=== PATIENT | female | born 1935 | race Caucasian/White ===

== ENCOUNTER 2020-02-19 21:13 | Emergency (ER) | payer MEDICARE, OTHER ==
[~2020-02-19] VITALS: Ht 154.9 cm; Wt 66.7 kg
--- NOTE | 2020-02-19 21:20 | NUR ---
PT AAOX4. BIBEMS C/O DIZZINESS, WEAKNESS S/P TAKING CLONIDINE, HYDRALAZINE & COREG. PT PLACED IN BED 9 ON PHOTOGRAPHY TEACHER AND PULSE OX. NO ACUTE DISTRESS NOTED. AWAITING MD FOR EVAL AND ORDERS.
[2020-02-19 21:30] LABS: BASOPHILS # (AUTO) 0.1 /CMM (0.0-0.2); BASOPHILS % (AUTO) 0.9 % (0.0-2.0); EOSINOPHILS % (AUTO) 2.8 % (0.0-6.0); HEMATOCRIT 36 % (33-45); HEMOGLOBIN 12.1 g/dL (11.5-14.8); LYMPHOCYTES # (AUTO) 1.5 /CMM (0.8-4.8); LYMPHOCYTES % (AUTO) 24.3 % (20.0-44.0); MEAN CORPUSCULAR HGB CONC 34 g/dl (31.0-36.0); MEAN CORPUSCULAR VOLUME 95 fL (82-100); MONOCYTES # (AUTO) 0.8 /CMM (0.1-1.30); MONOCYTES % (AUTO) 12.3 % (2.0-12.0); NEUTROPHILS # (AUTO) 3.8 /CMM (1.8-8.9); NEUTROPHILS % (AUTO) 59.7 % (43.0-81.0); PLATELET COUNT (AUTO) 212 /CMM (150-450); RED BLOOD CELL COUNT(AUTO) 3.81 MIL/uL (4.0-5.2); WHITE BLOOD COUNT (AUTO) 6.3 K/uL (4.3-11.0)
[2020-02-19] MEDS: IV NS 0.9% 500 ML BAG IV ONE (21:39)
--- NOTE | 2020-02-19 21:39 | NUR ---
RADIOLOGY AT BEDSIDE
[2020-02-19 21:41] LABS: CALCIUM, SERUM 9.2 mg/dL (8.5-10.1); CARBON DIOXIDE 26 mmol/L (21-32); CHLORIDE 106 mmol/L (98-107); CREATININE 1.2 mg/dL (0.6-1.3); GLUCOSE 92 mg/dL (74-106); POTASSIUM 3.3 mmol/L (3.5-5.1); SODIUM SERUM 142 mmol/L (136-145); UREA NITROGEN, BLOOD 17 mg/dL (7-18)
[2020-02-19 21:47] LABS: ALANINE AMINOTRANSFERASE 17 U/L (12-78); ALBUMIN 3.4 g/dL (3.4-5.0); ALKALINE PHOSPHATASE 68 U/L (46-116); ASPARTATE AMINOTRANSFERASE 18 U/L (15-37); BILIRUBIN,DIRECT 0.1 mg/dL (0.0-0.2); BILIRUBIN,TOTAL 0.2 mg/dL (0.2-1.0); TOTAL PROTEIN, SERUM 7.4 g/dL (6.4-8.2)
--- NOTE | 2020-02-19 22:19 | NUR ---
PT BP STABLE. MD AT BEDSIDE.
--- NOTE | 2020-02-19 22:27 | NUR ---
IV removed. Catheter intact and site benign. Pressure and 4x4 applied to site. No bleeding noted.
--- NOTE | 2020-02-19 23:02 | NUR ---
AWAITING FOR PT'S DAUGHTER IN LAW TO HOSPITALITY DIRECTOR PT.
--- NOTE | 2020-02-19 23:31 | NUR ---
Patient discharged to home in stable condition. Written and verbal after care instructions given. Patient verbalizes understanding of instruction. Pt ambulated out of E.D. Picked up by daughter in law.
[2020-02-19 23:32] VITALS: BP 129/76
== END 2020-02-19 23:32 | disposition home or self-care (01) ==
LOC: ER 21:13
DX: R55 Syncope and collapse (principal); R42 Dizziness and giddiness; I10 Essential (primary) hypertension
CPT/HCPCS: 36415; 71045; 80048; 80076; 84484; 85025; 85730; 93005; 99285; J7040

== ENCOUNTER 2020-04-19 11:14 | Inpatient (IN) | payer MEDICARE, OTHER ==
[~2020-04-19] VITALS: Ht 154.9 cm; Wt 63.0 kg
[2020-04-19] MEDS ORDERED: ONDANSETRON HCL/PF 4 MG/2 ML VIAL ONE (11:29)
[2020-04-19] MEDS ORDERED: ONDANSETRON HCL/PF 4 MG/2 ML VIAL IV ONE (11:30)
[2020-04-19] MEDS ORDERED: IV NS 0.9% 1,000 ML BAG IV ONE ×2 (11:30→15:00)
--- NOTE | 2020-04-19 11:30 | NUR ---
Patient ho from home, had syncopal episode, assisted by family to the ground, no injury/trauma noted. Connected to the monitor and pulse ox. kept comfortable, will continue to monitor accordingly.
[2020-04-19 12:02] LABS: BASOPHILS % (AUTO) 0.9 % (0.0-2.0); EOSINOPHILS % (AUTO) 2.3 % (0.0-6.0); HEMATOCRIT 34 % (33-45); HEMOGLOBIN 11.5 g/dL (11.5-14.8); LYMPHOCYTES # (AUTO) 0.9 /CMM (0.8-4.8); LYMPHOCYTES % (AUTO) 16.1 % (20.0-44.0); MEAN CORPUSCULAR HGB CONC 34 g/dl (31.0-36.0); MEAN CORPUSCULAR VOLUME 93 fL (82-100); MONOCYTES # (AUTO) 0.5 /CMM (0.1-1.30); MONOCYTES % (AUTO) 9.6 % (2.0-12.0); NEUTROPHILS # (AUTO) 3.8 /CMM (1.8-8.9); NEUTROPHILS % (AUTO) 71.1 % (43.0-81.0); PLATELET COUNT (AUTO) 211 /CMM (150-450); RED BLOOD CELL COUNT(AUTO) 3.63 MIL/uL (4.0-5.2); WHITE BLOOD COUNT (AUTO) 5.3 K/uL (4.3-11.0)
[2020-04-19] MEDS ORDERED: APIX2.5T PO (12:09)
[2020-04-19] MEDS ORDERED: AMIO100T4 PO (12:09)
[2020-04-19] MEDS ORDERED: ISOS30TA86 PO (12:09)
[2020-04-19] MEDS ORDERED: CHLO25TA2 PO (12:09)
[2020-04-19] MEDS ORDERED: HYDR100T27 PO (12:09)
[2020-04-19] MEDS ORDERED: CLON0.1T PO (12:09)
[2020-04-19] MEDS ORDERED: CARV25TA2 PO (12:09)
[2020-04-19] MEDS ORDERED: OLME40TA18 PO (12:09)
[2020-04-19] MEDS ORDERED: POTA10TA11 PO (12:09)
[2020-04-19 12:15] LABS: CALCIUM, SERUM 8.5 mg/dL (8.5-10.1); CARBON DIOXIDE 26 mmol/L (21-32); CHLORIDE 98 mmol/L (98-107); CREATININE 1.4 mg/dL (0.6-1.3); GLUCOSE 168 mg/dL (74-106); POTASSIUM 3.6 mmol/L (3.5-5.1); SODIUM SERUM 132 mmol/L (136-145); UREA NITROGEN, BLOOD 20 mg/dL (7-18)
[2020-04-19 12:23] LABS: ALANINE AMINOTRANSFERASE 17 U/L (12-78); ALBUMIN 3.1 g/dL (3.4-5.0); ALKALINE PHOSPHATASE 57 U/L (46-116); ASPARTATE AMINOTRANSFERASE 17 U/L (15-37); BILIRUBIN,DIRECT 0.1 mg/dL (0.0-0.2); BILIRUBIN,TOTAL 0.5 mg/dL (0.2-1.0); TOTAL PROTEIN, SERUM 6.6 g/dL (6.4-8.2)
--- NOTE | 2020-04-19 12:27 | NUR ---
[facility] CALLED ELECTRICAL CAD TECHNICIAN PAGED.
--- NOTE | 2020-04-19 12:29 | NUR ---
LACTIC ACID 2.2 ROBERTO SALTER.
--- NOTE | 2020-04-19 14:22 | NUR ---
received a call from the lab regarding covid 19 result "negative".
--- NOTE | 2020-04-19 15:28 | NUR ---
LACTIC ACID 2.1
--- NOTE | 2020-04-19 15:37 | NUR ---
REPORT GIVEN TO ESAU DAVE FOR JETT.
[2020-04-19 16:00] VITALS: BP 181/76
--- NOTE | 2020-04-19 16:30 | NUR ---
TELE/RN NOTES RECEIVED REPORT FROM SAMMY DAVE. ADMITTED A FEMALE PATIENT FROM ER. PATIENT IN ROOM AIR SATURATING WELL. NO APPARENT RESPIRATORY DISTRESS NOTES. NO COMPLAINED OF PAIN NOTED AT THIS TIME. INITIAL SKIN ASSESSMENT AND VITAL SIGN WAS DONE AND NOTED. WILL CONTINUE TO MONITOR.
--- NOTE | 2020-04-19 16:37 | NUR ---
PATIENT TRANSFERRED TO UNIT ROOM 314-2, VITAL SIGNS STABLE, IN NO ACUTE DISTRESS. ENDORSED TO ADARSH DAEV TO RESUME CARE.
[2020-04-19] MEDS ORDERED: ZOLPIDEM TARTRATE 5 MG TABLET PO PRN (17:00)
[2020-04-19] MEDS ORDERED: ONDANSETRON HCL/PF 4 MG/2 ML VIAL IVP PRN (17:00)
[2020-04-19] MEDS ORDERED: Z GUARD REMEDY 2 OZ OINT TP PRN (17:00)
[2020-04-19] MEDS ORDERED: MAGNESIUM HYDROXIDE 30 ML UDC PO PRN (17:00)
[2020-04-19] MEDS ORDERED: ACETAMINOPHEN 325 MG TABLET PO PRN (17:00)
[2020-04-19] MEDS ORDERED: IV NS 0.9% 1,000 ML IV PRN (18:30)
--- NOTE | 2020-04-19 18:46 | NUR ---
TELE/RN CLOSING NOTES PATIENT IS ON BED,AWAKE ALERT AND ORIENTED X3. PATIENT IS ON ROOM AIR SATURATION 98%. PATIENT IN NO APPARENT RESPIRATORY DISTRESS NOTED. NO COMPLAINED OF PAIN NOTED AT THIS TIME. TELE MONITOR READING A PACING 60 BPM. SAFETY PRECAUTIONS WAS IN PLACED. BED IN LOWEST POSITION AND LOCKED. SIDE RAILS WAS LOCKED X2. WILL ENDORSED TO QUARTZ MOUNTER FOR JETT.
[2020-04-19 19:12] LABS: COLOR,URINE LIGHT YELLOW (YELLOW)
[2020-04-19 19:13] LABS: BILIRUBIN,URINE NEGATIVE (NEGATIVE); PROTEIN,URINE NEGATIVE (NEGATIVE); UGLUCOSE NEGATIVE (NEGATIVE)
[2020-04-19 19:14] LABS: LEUKOCYTE ESTERASE ,URINE NEGATIVE (NEGATIVE); NITRITE, URINE NEGATIVE (NEGATIVE); UROBILINOGEN,URINE 0.2 EU/dL (0.2)
--- NOTE | 2020-04-19 19:30 | NUR ---
TELE/RN OPENING RECEIVED PATIENT IN BED RESTING. PATIENT IS ALERT AND ORIENTED X 3. PATIENTS BREATHING IS EVEN AND UNLABORED. NO SIGNS OF SOB OR RESPIRATORY DISTRESS NOTED. PATIENT STATES NO PAIN AT THIS TIME. PATIENT IV ACCESS PN RAC INTACT FLUSHING WELL. SAFETY MEASURES ARE IN PLACE, BED IS LOCKED AND PLACED IN THE LOWEST POSITION, SIDE RAILS UP X 2, CALL LIGHT IS WITHIN REACH. WILL CONTINUE TO MONITOR THROUGH OUT SHIFT.
[2020-04-19 20:00] VITALS: BP 159/67
[2020-04-19] MEDS ORDERED: HEPARIN SODIUM, PORCINE 5000 UNITS/1 ML VIAL SQ SCH (21:00)
[2020-04-20] VITALS (9 sets, daily range): BP systolic 115–161; BP diastolic 49–87
[2020-04-20] MEDS ORDERED: APIXABAN 2.5 MG TABLET PO SCH
[2020-04-20] MEDS: ISOSORBIDE MONONITRATE (30MG) 30 MG TAB.SR.24H PO SCH ×3 (00:33→16:49)
[2020-04-20] MEDS: hydrALAZINE HCL 50 MG TABLET PO SCH ×3 (00:33→20:51)
--- NOTE | 2020-04-20 06:29 | NUR ---
TELE/RN CLOSING NOTES PATIENT IN BED SLEEPING EASY TO WAKE. PATIENT IS ALERT AND ORIENTED X 4. PATIENTS BREATHING IS EVEN AND UNLABORED. NO SIGNS OF SOB OR RESPIRATORY DISTRESS NOTED. TELE READING A PACING. PATIENT STATES NO PAIN AT THIS TIME. PATIENT IV ACCESS ON RAC INTACT FLUSHING WELL RUNNING NS AT 60 CC/HR. ALL NEEDS HAVE BEEN MET DURING SHIFT. SAFETY MEASURES ARE IN PLACE, BED IS LOCKED AND PLACED IN THE LOWEST POSITION, SIDE RAILS UP X 2, CALL LIGHT IS WITHIN REACH. WILL ENDORSE CARE TO DAY SHIFT NURSE.
--- NOTE | 2020-04-20 07:29 | NUR ---
DYE BOX OPERATOR OPENING NOTES RECEIVED PATIENT AWAKE IN BED IN NO ACUTE SIGNS OF DISTRESS. A/O X4. ABLE TO MAKE NEEDS KNOWN, DENIES PAIN OR ANY DISCOMFORTS AT THIS TIME. ON ROOM AIR, BREATHING EVEN AND UNLABORED. ON TELE MONITORING WITH CURRENT READING OF A-PACING HR ON THE 70'S, NO C/O CARDIAC DISTRESS VOICED. IV ACCES ON RAC G#20 INTACT AND PATENT WITH IVF OF NS @ 60ML/HR INFUSING WELL. SAFETY MEASURES IN PLACE: BED IS LOW AND LOCKED, SIDE RAILS UP X2, BED ALARM ON AND CALL LIGHT WITHIN REACH. WILL CONTINUE TO MONITOR.
[2020-04-20 08:02] LABS: EOSINOPHILS % (AUTO) 2.7 % (0.0-6.0); HEMATOCRIT 32 % (33-45); HEMOGLOBIN 10.9 g/dL (11.5-14.8); LYMPHOCYTES # (AUTO) 1.1 /CMM (0.8-4.8); LYMPHOCYTES % (AUTO) 21.6 % (20.0-44.0); MEAN CORPUSCULAR HGB CONC 34 g/dl (31.0-36.0); MEAN CORPUSCULAR VOLUME 94 fL (82-100); MONOCYTES # (AUTO) 0.5 /CMM (0.1-1.30); MONOCYTES % (AUTO) 10.6 % (2.0-12.0); NEUTROPHILS # (AUTO) 3.2 /CMM (1.8-8.9); NEUTROPHILS % (AUTO) 64.1 % (43.0-81.0); PLATELET COUNT (AUTO) 208 /CMM (150-450); RED BLOOD CELL COUNT(AUTO) 3.42 MIL/uL (4.0-5.2)
[2020-04-20 08:29] LABS: CALCIUM, SERUM 8.1 mg/dL (8.5-10.1); CREATININE 1.2 mg/dL (0.6-1.3); MAGNESIUM 1.9 mg/dL (1.8-2.4); PHOSPHORUS 3.3 mg/dL (2.5-4.9); POTASSIUM 3.6 mmol/L (3.5-5.1)
[2020-04-20] MEDS: POTASSIUM CHLORIDE 10 MEQ TABLET.SA PO SCH (08:53)
[2020-04-20] MEDS: AMIODARONE HCL 200 MG TABLET PO SCH (08:54)
[2020-04-20] MEDS: APIXABAN 2.5 MG TABLET PO SCH ×2 (08:56→16:50)
--- NOTE | 2020-04-20 09:21 | NUR ---
RN NOTES ORTHOSTATIC BP CHECKED: SUPINE 119/53, SITTING 121/56 AND STANDING 124/53. PATIENT WITH NO C/O ANY DISCOMFORTS, DIZZINESS, HEADACHE OR LIGHTHEADEDNESS. WILL CONTINUE TO MONITOR.
[2020-04-20 09:35] LABS: IRON, SERUM 98 ug/dl (50-175); TOTAL IRON BINDING CAPACITY 257 ug/dl (250-450)
[2020-04-20 09:56] LABS: CHOLESTEROL 152 mg/dL (<200); FERRITIN 63 ng/mL (8-388); HDL CHOLESTEROL 38 mg/dL (40-60); LDL 86 mg/dL (0-99); THYROID STIMULATING HORMONE 1.736 uIU/mL (0.358-3.74); TRIGLYCERIDES 182 mg/dL (30-150)
--- NOTE | 2020-04-20 16:27 | NUR ---
RN NOTES PT'S PACEMAKER CHECKED BY DON OF METRONIC AND STAED THAT PT'S PACEMAKER IS WORKING FINE. WILL CONTINUE TO MONITOR
--- NOTE | 2020-04-20 18:44 | NUR ---
SOFTWARE QUALITY ASSURANCE ENGINEER CLOSING NOTES PATIENT IN BED AWAKE AND WATCHING TV AT THIS TIME. A/O X4. ROMANSH SPEAKING BUT UNDERSTANDS SOME ROMANSH. ON ROOM AIR, TOLERATING WELL, BREATHING EVEN AND UNLABORED. ON TELE MONITORING WITH CURRENT READING OF A-PACING HR ON THE HIGH 60'S, NO C/O CARDIAC DISTRESS VOICED DURING SHIFT. IV ACCESS ON RAC G#20 INTACT AND PATENT WITH IVF OF NS @ 60ML/HR INFUSING WELL. ALL NEEDS AND CARE ATTENDED WELL. SAFETY MEASURES IN PLACE: BED IS LOW AND LOCKED, SIDE RAILS UP X2, BED ALARM ON AND CALL LIGHT WITHIN REACH. WILL ENDORSE TO BUCKLE FRAME SHAPER NURSE FOR JETT.
--- NOTE | 2020-04-20 19:30 | NUR ---
MS/RN NOTES RECEIVED PATIENT IN BED RESTING. PATIENT IS ALERT AND ORIENTED X 3. PATIENTS BREATHING IS EVEN AND UNLABORED. NO SIGNS OF SOB OR RESPIRATORY DISTRESS NOTED. PATIENT STATES NO PAIN AT THIS TIME. IV ACCESS INTACT FLUSHING WELL. SAFETY MEASURES ARE IN PLACE BED IS LOCKED AND PLACED IN THE LOW POSITION, CALL LIGHT IS WITHIN REACH, SIDE RAILS UP X 2. WILL CONTINUE TO MONITOR THROUGH OUT SHIFT.
[2020-04-20] MEDS: HYDROCODONE/APAP 5/325MG TABLET PO PRN (23:41)
[2020-04-21] VITALS: BP 160/88
[2020-04-21 04:00] VITALS: BP 186/75
[2020-04-21] MEDS: HYDROCODONE/APAP 5/325MG TABLET PO PRN (04:24)
--- NOTE | 2020-04-21 06:40 | NUR ---
MS/RN CLOSING NOTES PATIENT IN BED RESTING. PATIENT IS ALERT AND ORIENTED X 4. PATIENTS BREATHING IS EVEN AND UNLABORED. NO SIGNS OF SOB OR RESPIRATORY DISTRESS NOTED. IV ACCESS INTACT FLUSHING WELL. ALL NEEDS HAVE BEEN MET DURING SHIFT. SAFETY MEASURES ARE IN PLACE BED IS LOCKED AND PLACED IN THE LOW POSITION, CALL LIGHT IS WITHIN REACH, SIDE RAILS UP X 2. WILL ENDORSE CARE TO DAY SHIFT NURSE.
--- NOTE | 2020-04-21 07:20 | NUR ---
RN OPENING NOTES PATIENT RECIEVED IN BED RESTING. PATIENT IS ALERT AND ORIENTED X 4. PATIENTS BREATHING IS EVEN AND UNLABORED. NO SIGNS OF SOB OR RESPIRATORY DISTRESS NOTED. IV ACCESS INTACT FLUSHING WELL. SAFETY PRECAUTIONS IMPLEMENTED, BED LOCKED IN LOW POSITION, CALL LIGHT IS WITHIN REACH, SIDE RAILS UP X 2. WILL CONTINUE TO MONITOR CLIENT AND PROVIDE CARE THROUGHOUT SHIFT.
[2020-04-21 08:35] VITALS: BP 147/56
[2020-04-21] MEDS ORDERED: VALSARTAN 80 MG TABLET PO SCH (09:00)
[2020-04-21] MEDS: hydrALAZINE HCL 50 MG TABLET PO SCH (09:32)
[2020-04-21] MEDS: ISOSORBIDE MONONITRATE (30MG) 30 MG TAB.SR.24H PO SCH ×2 (09:33→17:06)
[2020-04-21] MEDS: POTASSIUM CHLORIDE 10 MEQ TABLET.SA PO SCH (09:34)
[2020-04-21 09:36] LABS: BASOPHILS # (AUTO) 0.1 /CMM (0.0-0.2); EOSINOPHILS % (AUTO) 3.5 % (0.0-6.0); HEMATOCRIT 30 % (33-45); HEMOGLOBIN 10.4 g/dL (11.5-14.8); LYMPHOCYTES # (AUTO) 1.1 /CMM (0.8-4.8); LYMPHOCYTES % (AUTO) 19.9 % (20.0-44.0); MEAN CORPUSCULAR HGB CONC 35 g/dl (31.0-36.0); MEAN CORPUSCULAR VOLUME 93 fL (82-100); MONOCYTES # (AUTO) 0.7 /CMM (0.1-1.30); MONOCYTES % (AUTO) 12.5 % (2.0-12.0); NEUTROPHILS # (AUTO) 3.4 /CMM (1.8-8.9); NEUTROPHILS % (AUTO) 63.1 % (43.0-81.0); PLATELET COUNT (AUTO) 187 /CMM (150-450); RED BLOOD CELL COUNT(AUTO) 3.18 MIL/uL (4.0-5.2); WHITE BLOOD COUNT (AUTO) 5.5 K/uL (4.3-11.0)
[2020-04-21] MEDS: AMIODARONE HCL 200 MG TABLET PO SCH (09:37)
[2020-04-21] MEDS: APIXABAN 2.5 MG TABLET PO SCH ×2 (09:38→17:07)
[2020-04-21 11:24] LABS: CALCIUM, SERUM 8.7 mg/dL (8.5-10.1); CREATININE 1.2 mg/dL (0.6-1.3); POTASSIUM 3.3 mmol/L (3.5-5.1)
[2020-04-21 11:29] LABS: ALBUMIN 2.9 g/dL (3.4-5.0); BILIRUBIN,TOTAL 0.3 mg/dL (0.2-1.0); MAGNESIUM 1.6 mg/dL (1.8-2.4); PHOSPHORUS 3.6 mg/dL (2.5-4.9); TOTAL PROTEIN, SERUM 6.2 g/dL (6.4-8.2)
[2020-04-21] MEDS ORDERED: POTASSIUM CHLORIDE 10 MEQ TABLET.SA PO ONE (12:30)
[2020-04-21] MEDS ORDERED: VALS80TA2 PO (13:08)
[2020-04-21 16:02] VITALS: BP 161/80
[2020-04-21 17:06] VITALS: BP 161/80
--- NOTE | 2020-04-21 18:33 | NUR ---
PATIENT DISCHARGED HOME WITH HOME HEALTH. PATIENT IN STABLE CONDITION PRIOR TO DISCHARGE WITH NO COMPLAINTS. PAPERWORK AND PRESCRIPTION PROVIDED FOR CLIENT PRIOR TO DISCHARGE WITH INSTRUCTIONS TO F/U WITH DR. COMBS NEXT WEEK. CALL FOR APPOINTMENT.
== END 2020-04-21 18:30 | disposition home health service (06) | DRG 640 ==
LOC: ER 11:26 → TRANSITION 12:05 → TELE 16:11
PROVIDERS: ADMIT Nurse Practitioner Acute Care; ATTEND Nurse Practitioner Acute Care
DX: E86.0 Dehydration (principal); N17.0 Acute kidney failure with tubular necrosis; D68.69 Other thrombophilia; E87.1 Hypo-osmolality and hyponatremia; I11.0 Hypertensive heart disease with heart failure; I50.9 Heart failure, unspecified; I48.91 Unspecified atrial fibrillation; E87.6 Hypokalemia; Z79.01 Long term (current) use of anticoagulants; Z95.0 Presence of cardiac pacemaker; N13.9 Obstructive and reflux uropathy, unspecified; F41.9 Anxiety disorder, unspecified; Z20.822 Contact with and (suspected) exposure to COVID-19
CPT/HCPCS: 36415; 71045-TC; 80048-TC; 80053-TC; 80061-TC; 80076-TC; 82728-TC; 83540-TC; 83605-TC; 83735-TC; 83880; 84100-TC; 84439-TC; 84443-TC; 84484-TC; 85025-TC; 85730-TC; 86850-TC; 87040-TC; 87081-TC; 93307-TC; 97116-TC; 97530-TC; G0378; J1644; J2405; J7030

== ENCOUNTER 2020-05-13 13:25 | Inpatient (IN) | payer MEDICARE, OTHER ==
[~2020-05-13] VITALS: Ht 154.9 cm; Wt 62.6 kg
[~2020-05-13 13:25] MED LIST: AMIO100T4 PO; APIX2.5T PO; CHLO25TA2 PO; CLON0.1T PO; HYDR100T27 PO; ISOS30TA86 PO; POTA10TA11 PO; VALS80TA2 PO
--- NOTE | 2020-05-13 13:40 | NUR ---
bib family c/o being weak and dizzy since this morning, stating her BP was "very low." Vital signs stable. Patient kept comfortable, will continue to monitor. Awaiting to be seen by MD.
[2020-05-13] MEDS ORDERED: IV NS 0.9% 1,000 ML BAG IV ONE (14:00)
--- NOTE | 2020-05-13 14:20 | NUR ---
IV line started in RAC#20g, labs drawn and sent to lab. IVF running. Will continue to monitor.
[2020-05-13 15:31] LABS: BASOPHILS % (AUTO) 0.6 % (0.0-2.0); HEMATOCRIT 33 % (33-45); HEMOGLOBIN 11.1 g/dL (11.5-14.8); LYMPHOCYTES # (AUTO) 0.9 /CMM (0.8-4.8); LYMPHOCYTES % (AUTO) 12.2 % (20.0-44.0); MEAN CORPUSCULAR HGB CONC 34 g/dl (31.0-36.0); MEAN CORPUSCULAR VOLUME 94 fL (82-100); MONOCYTES # (AUTO) 0.6 /CMM (0.1-1.30); MONOCYTES % (AUTO) 7.2 % (2.0-12.0); NEUTROPHILS # (AUTO) 6.1 /CMM (1.8-8.9); PLATELET COUNT (AUTO) 254 /CMM (150-450); RED BLOOD CELL COUNT(AUTO) 3.48 MIL/uL (4.0-5.2); WHITE BLOOD COUNT (AUTO) 7.7 K/uL (4.3-11.0)
--- NOTE | 2020-05-13 15:34 | NUR ---
covid swab done and taken to the lab.
[2020-05-13 15:39] LABS: CALCIUM, SERUM 8.5 mg/dL (8.5-10.1); CARBON DIOXIDE 25 mmol/L (21-32); CHLORIDE 93 mmol/L (98-107); CREATININE 1.6 mg/dL (0.6-1.3); GLUCOSE 145 mg/dL (74-106); POTASSIUM 3.3 mmol/L (3.5-5.1); SODIUM SERUM 127 mmol/L (136-145); UREA NITROGEN, BLOOD 27 mg/dL (7-18)
[2020-05-13 15:53] LABS: ALANINE AMINOTRANSFERASE 15 U/L (12-78); ALBUMIN 3.2 g/dL (3.4-5.0); ALKALINE PHOSPHATASE 55 U/L (46-116); ASPARTATE AMINOTRANSFERASE 19 U/L (15-37); B-TYPE NATRIURETIC PEPTIDE 668 PG/ML (0-125); BILIRUBIN,DIRECT 0.1 mg/dL (0.0-0.2); BILIRUBIN,TOTAL 0.3 mg/dL (0.2-1.0); TOTAL PROTEIN, SERUM 6.7 g/dL (6.4-8.2)
--- NOTE | 2020-05-13 16:00 | NUR ---
Critical lab reported to MD Bonilla 3.4
--- NOTE | 2020-05-13 16:44 | NUR ---
NURSING SUP GAVE 313-2.
--- NOTE | 2020-05-13 17:34 | NUR ---
Urine collected and sent to lab.
--- NOTE | 2020-05-13 18:26 | NUR ---
REPORT GIVEN TO SHELLEY RN. PATIENT BROUGHT UP TO 313-2 BY BRANDEN.
--- NOTE | 2020-05-13 18:45 | NUR ---
REAL ESTATE PARALEGALMUD PLANT OPERATOR NOTES RECEIVED PT FROM ED TRANSPORTED BY BRANDEN TO UNIT WITH ACLS PROTOCOL IN PLACE AT THIS TIME.RECEIVED REPORT FROM JOLIE DODD @ED. PT IS AOX 3. SWEDISH SPEAKER. ABLE TO MAKE NEEDS KNOWN. LUNGS ARE CLEAR TO AUSCULTATION, ABDOMEN IS SOFT, NON TENDER, ACTIVE DENNY SOUNDS AUSCULTATED IN ALL FOUR QUADRANTS, PULSES ARE PRESENT BILATERALLY, GOOD CIRCULATION NOTED, CAPILLARY REFILL 3 SECONDS, SKIN IS WARM TO TOUCH, SKIN IS INTACT WITH BRUISE NOTED IN RIGHT MEDIAL LATERAL THIGH. BELONGINGS ACCOUNTED FOR, SIGNED BY PT, AT BEDSIDE WITH PT. IV ACCESS NOTED IN RAC G#20, INTACT, PATENT AND FLUSHING WELL. PT ON EXTERNAL TELE EMPLOYEE DEVELOPMENT DIRECTOR WITH PACE MAKER ATRIAL RATE 60. PT REORIENT TO THE ROOM AND TO USE CALL LIGHT TO ASK FOR ASSISTANCE. PT VERBALIZE UNDERSTANDING. ASPIRATIONS, AND SAFETY PRECAUTIONS IN PLACE AND MAINTAINED AT ALL TIMES. BED IN LOWEST LOCKED POSITION, SIDE RAILS UP AND PADDED, HOB ELEVATED, TABLE AND CALL LIGHT WITHIN REACH. WILL CONTINUE TO MONITOR
--- NOTE | 2020-05-13 19:30 | NUR ---
TELE/RN OPENING NOTE RECEIVED PATIENT RESTING IN BED. AWAKE, ALERT AND ORIENTED X 3. ABLE TO MAKE NEEDS KNOWN. NO COMPLAINTS OF PAIN AT THIS TIME. IV ACCESS TO RIGHT UPPER ARM INTACT AND PATENT. NO SIGNS OR SYMPTOMS OF DIZZINESS, SOB OR CHANGE IN LOC. CALL LIGHT WITHIN REACH. ASPIRATION, FALL AND SAFETY PRECAUTIONS MAINTAINED. WILL CONTINUE TO MONITOR.
[2020-05-13 20:00] VITALS: BP 182/78
[2020-05-13] MEDS ORDERED: POTASSIUM CHLORIDE 20 MEQ TAB.PRT.SR PO ONE (20:00)
[2020-05-13] MEDS ORDERED: Z GUARD REMEDY 2 OZ OINT TP PRN (20:00)
[2020-05-13] MEDS ORDERED: HYDROCODONE/APAP 5/325MG TABLET PO PRN (20:00)
[2020-05-13] MEDS ORDERED: ACETAMINOPHEN 325 MG TABLET PO PRN (20:00)
[2020-05-13] MEDS ORDERED: ZOLPIDEM TARTRATE 5 MG TABLET PO PRN (20:00)
[2020-05-13] MEDS ORDERED: MAGNESIUM HYDROXIDE 30 ML UDC PO PRN (20:00)
[2020-05-13] MEDS ORDERED: ONDANSETRON HCL/PF 4 MG/2 ML VIAL IVP PRN (20:00)
[2020-05-13] MEDS ORDERED: MAG HYDROX/AL HYDROX/SIMETH 30 ML UDC PO PRN (20:00)
--- NOTE | 2020-05-13 20:00 | NUR ---
TELE/RN NOTE RECEIVED CALL FROM LAB WITH LACTIC ACID LEVEL OF 2.9. LACTIC ACID LEVEL IS DOWNTRENDING. CONTINUES WITH IV NS @ 75ML/HR. WILL CONTINUE TO MONITOR.
[2020-05-13] MEDS: APIXABAN 2.5 MG TABLET PO SCH (20:29)
[2020-05-13] MEDS ORDERED: INFLUENZA VACCINE 2020-21 0.5 ML DISP.SYRIN IM ONE (21:00)
[2020-05-13] MEDS ORDERED: PNEUMOCOCCAL 23-VAL P-SAC VAC 0.5 ML VIAL SQ ONE (21:00)
[2020-05-13 21:09] LABS: BILIRUBIN,URINE NEGATIVE (NEGATIVE); COLOR,URINE YELLOW (YELLOW); LEUKOCYTE ESTERASE ,URINE LARGE (NEGATIVE); NITRITE, URINE POSITIVE (NEGATIVE); PROTEIN,URINE TRACE mg/dl (NEGATIVE); UGLUCOSE NEGATIVE (NEGATIVE); UROBILINOGEN,URINE 0.2 EU/dL (0.2)
[2020-05-13 21:12] LABS: PH,URINE >8.5 (5.0-8.0)
--- NOTE | 2020-05-13 21:15 | NUR ---
TELE/RN NOTE PATIENTS BP 182/78. RECHECK BP 177/83. NOTIFIED AVIONICS MECHANIC MD PARMAR. NEW ORDER FOR CLONIDINE PRN AND VALSARTAN X 1 NOW. ORDERS INPUTTED AND CARRIED OUT.
[2020-05-13] MEDS ORDERED: VALSARTAN 80 MG TABLET PO ONE (21:30)
[2020-05-13] MEDS ORDERED: CLONIDINE HCL 0.1 MG TABLET PO PRN (21:30)
[2020-05-13 21:34] LABS: BACTERIA,URINE 3+ /HPF (None Seen); RBC,URINE 0-2 /HPF (0-2); SQUAMOUS EPITHELIAL CELL,UR 0-2 /HPF (None Seen); TRIPLE PHOSPHATE CRYSTAL,UR Few /HPF (None Seen)
--- NOTE | 2020-05-13 22:15 | NUR ---
TELE/RN NOTE MANUAL BP RECHECK AFTER BLOOD PRESSURE MEDICATION IS 158/72. WILL CONTINUE TO MONITOR.
[2020-05-14] VITALS: BP 170/75
[2020-05-14] MEDS: IV NS 0.9% 1,000 ML IV PRN ×2 (00:22→16:14)
[2020-05-14 04:00] VITALS: BP 150/84
--- NOTE | 2020-05-14 06:30 | NUR ---
TELE/RN CLOSING NOTE PATIENT CURRENTLY RESTING IN BED. AWAKE, ALERT AND ORIENTED X 4. ABLE TO MAKE NEEDS KNOWN. NO COMPLAINTS OF PAIN AT THIS TIME. CONTINUES ON ROOM AIR WITH NO SIGNS OR SYMPTOMS OF RESPIRATORY DISTRESS NOTED. IV ACCESS TO RIGHT AC INTACT AND PATENT. CONTINUES WITH NS @ 75ML/HR. TELE MONITOR READING A-PACING. CALL LIGHT WITHIN REACH. ASPIRATION, FALL AND SAFETY PRECAUTIONS MAINTAINED. WILL ENDORSE PLAN OF CARE TO ONCOMING SHIFT.
[2020-05-14 06:58] LABS: BASOPHILS # (AUTO) 0.1 /CMM (0.0-0.2); BASOPHILS % (AUTO) 1.1 % (0.0-2.0); EOSINOPHILS % (AUTO) 2.1 % (0.0-6.0); HEMATOCRIT 33 % (33-45); HEMOGLOBIN 11.4 g/dL (11.5-14.8); LYMPHOCYTES # (AUTO) 1.2 /CMM (0.8-4.8); LYMPHOCYTES % (AUTO) 20.4 % (20.0-44.0); MEAN CORPUSCULAR HGB CONC 35 g/dl (31.0-36.0); MEAN CORPUSCULAR VOLUME 92 fL (82-100); MONOCYTES # (AUTO) 0.6 /CMM (0.1-1.30); MONOCYTES % (AUTO) 10.6 % (2.0-12.0); NEUTROPHILS % (AUTO) 65.8 % (43.0-81.0); PLATELET COUNT (AUTO) 239 /CMM (150-450); RED BLOOD CELL COUNT(AUTO) 3.53 MIL/uL (4.0-5.2)
[2020-05-14 07:29] LABS: CALCIUM, SERUM 8.5 mg/dL (8.5-10.1); CREATININE 1.3 mg/dL (0.6-1.3); MAGNESIUM 1.9 mg/dL (1.8-2.4); PHOSPHORUS 3.1 mg/dL (2.5-4.9); POTASSIUM 3.7 mmol/L (3.5-5.1)
--- NOTE | 2020-05-14 07:30 | NUR ---
RN OPENING NOTE PT IS AWAKE IN BED. A/O X3 AND ABLE TO COMMUNICATE NEEDS TO NURSES. NO COMPLAINT OF PAIN/NAUSEA. CURRENTLY ON RA WITH NO SOB/RESPIRATORY DISTRESS PRESENT. PACEMAKER PRESENT ON UPPER CHEST. AMBULATORY WITH STANDBY ASSIST. R THIGH BRUISE PRESENT. HL PRESENT ON R AC 20G. SAFETY MEASURES IN PLACE. SIDE RAILS RAISED. BED LOWERED. CALL LIGHT WITHIN REACH. WILL CONTINUE TO MONITOR.
[2020-05-14 08:51] VITALS: BP 143/65
[2020-05-14] MEDS: ISOSORBIDE MONONITRATE (30MG) 30 MG TAB.SR.24H PO SCH ×2 (09:00→16:25)
[2020-05-14] MEDS: AMIODARONE HCL 200 MG TABLET PO SCH (09:00)
[2020-05-14] MEDS: VALSARTAN 80 MG TABLET PO SCH (09:00)
--- NOTE | 2020-05-14 09:00 | NUR ---
GOVERNMENT PROPERTY INSPECTOR NOTE BP MEDS HELD DUE TO DECREASED BLOOD PRESSURE. MEDS HELD ARE FOLLOWS: AMLODIPINE, VALSARTAN, AMIODARONE. BP OF 134/ Addendum: 05/14/20 at 1544 by BENJI CRYSTAL RN BP OF 134/ 65, PULSE OF 64. WILL CONTINUE TO MONITOR
[2020-05-14] MEDS: APIXABAN 2.5 MG TABLET PO SCH ×2 (09:09→16:26)
[2020-05-14] MEDS: CEFTRIAXONE 1 G in IV D5W 50 ML IV SCH (09:10)
[2020-05-14 12:00] VITALS: BP 125/60
[2020-05-14 16:00] VITALS: BP 164/93
[2020-05-14] MEDS: hydrALAZINE HCL 50 MG TABLET PO SCH (16:24)
--- NOTE | 2020-05-14 17:57 | NUR ---
RN CLOSING NOTE PT IS A/O X3 AND UNDERSTANDS MONGOLIAN. A SAD DEMEANOR IS NOTED. CURRENTLY ON RA WITH NO SOB OR RESPIRATORY DISTRESS PRESENT. O2 SAT >95% THROUGHOUT SHIFT. PACEMAKER PRESENT. A-PACING RECORDED VIA EXTERNAL MONITOR. AMBULATORY WITH BATHROOM PRIVILEGES. R THIGH BRUISE PRESENT. HL PRESENT ON R AC, 20G. SAFETY MEASURES IN PLACE. SIDE RAILS RAISED. BED LOWERED. CALL LIGHT WITHIN REACH. ROUTINE MEDS GIVEN. REPORT TO BE GIVEN TO NIGHT NURSE FOR JETT.
[2020-05-14 20:00] VITALS: BP 132/62
--- NOTE | 2020-05-14 20:00 | NUR ---
RN NOTES RECEIVED PT. AWAKE ON BED.3, BRAZILIAN/AZERI SPEAKING, NOTICED RIGHT ARM IS SWOLLEN,, IV IS INFILTRATED, EXPLAINED TO THE PT. THAT WERE GOING TO PUT A NEW IV LINE , PT AGREED BUT REFUSED TO BE HOOK BACK ON HER IV FLUID, DENIES PAIN, NO SOB, CALL LIGHT WITHIN REACH, [id number], WILL CONTINUE TO MONITOR
--- NOTE | 2020-05-14 22:30 | NUR ---
RN NOTES NEW IV LINE INSERTED ON THE RIGHT WRIST GAUGE 22
[2020-05-15] VITALS (7 sets, daily range): BP systolic 132–181; BP diastolic 55–80
[2020-05-15 05:54] LABS: BASOPHILS # (AUTO) 0.1 /CMM (0.0-0.2); BASOPHILS % (AUTO) 1.1 % (0.0-2.0); EOSINOPHILS % (AUTO) 2.4 % (0.0-6.0); HEMATOCRIT 29 % (33-45); HEMOGLOBIN 10.1 g/dL (11.5-14.8); LYMPHOCYTES # (AUTO) 1.3 /CMM (0.8-4.8); LYMPHOCYTES % (AUTO) 21.9 % (20.0-44.0); MEAN CORPUSCULAR HGB CONC 35 g/dl (31.0-36.0); MEAN CORPUSCULAR VOLUME 93 fL (82-100); MONOCYTES # (AUTO) 0.8 /CMM (0.1-1.30); NEUTROPHILS # (AUTO) 3.6 /CMM (1.8-8.9); NEUTROPHILS % (AUTO) 61.6 % (43.0-81.0); PLATELET COUNT (AUTO) 210 /CMM (150-450); RED BLOOD CELL COUNT(AUTO) 3.12 MIL/uL (4.0-5.2); WHITE BLOOD COUNT (AUTO) 5.9 K/uL (4.3-11.0)
[2020-05-15 06:24] LABS: CALCIUM, SERUM 8.6 mg/dL (8.5-10.1); CREATININE 1.2 mg/dL (0.6-1.3); POTASSIUM 3.4 mmol/L (3.5-5.1)
--- NOTE | 2020-05-15 06:37 | NUR ---
RN NOTES AWAKE, DENIES PAIN, NO SOB, MORNING CARE RENDERED, CALL LIGHT WITHIN REACH, [id number], PT. NEEDS ATTENDED
[2020-05-15] MEDS: VALSARTAN 80 MG TABLET PO SCH (09:00)
[2020-05-15] MEDS: CHLORTHALIDONE 25 MG PO SCH (09:00)
[2020-05-15] MEDS: ISOSORBIDE MONONITRATE (30MG) 30 MG TAB.SR.24H PO SCH ×2 (10:13→16:08)
[2020-05-15] MEDS: AMIODARONE HCL 200 MG TABLET PO SCH (10:13)
[2020-05-15] MEDS: hydrALAZINE HCL 50 MG TABLET PO SCH ×2 (10:13→16:08)
[2020-05-15] MEDS: APIXABAN 2.5 MG TABLET PO SCH ×2 (10:19→16:10)
[2020-05-15] MEDS: CEFTRIAXONE 1 G in IV D5W 50 ML IV SCH (10:21)
--- NOTE | 2020-05-15 10:38 | NUR ---
RN OPENING NOTE PT IS AWAKE IN BED. A/O X3 AND ABLE TO COMMUNICATE NEEDS TO NURSES. NO COMPLAINT OF PAIN/NAUSEA. CURRENTLY ON RA WITH NO SOB/RESPIRATORY DISTRESS PRESENT. PACEMAKER PRESENT ON R UPPER CHEST. AMBULATORY WITH STANDBY ASSIST. R THIGH BRUISE PRESENT. HL PRESENT ON R WRIST 20G. SAFETY MEASURES IN PLACE. SIDE RAILS RAISED. BED LOWERED. CALL LIGHT WITHIN REACH. WILL CONTINUE TO MONITOR.
[2020-05-15] MEDS ORDERED: POTASSIUM CHLORIDE 20 MEQ TAB.PRT.SR PO SCH (11:00)
--- NOTE | 2020-05-15 18:44 | NUR ---
RN CLOSING NOTE PT IS AWAKE IN BED. A/O X3 AND ABLE TO COMMUNICATE NEEDS TO NURSES. NO COMPLAINT OF PAIN/NAUSEA. CURRENTLY ON RA WITH NO SOB/RESPIRATORY DISTRESS PRESENT. PACEMAKER PRESENT ON R UPPER CHEST. AMBULATORY WITH STANDBY ASSIST. R THIGH BRUISE PRESENT. HL PRESENT ON R WRIST 20G. SAFETY MEASURES IN PLACE. SIDE RAILS RAISED. BED LOWERED. CALL LIGHT WITHIN REACH. ROUTINE MEDS GIVEN. REPORT GIVEN TO NIGHT NURSE FOR JETT.
--- NOTE | 2020-05-15 19:30 | NUR ---
DAMPENER OPERATOR OPENING NOTE RECEIVED PATIENT IN BED. A/OX3. TOLERATING ROOM AIR. RESPIRATIONS ARE EVEN AND UNLABORED. NO S/S SOB NOTED. NO C/O OF PAIN AT THIS TIME. EXTERNAL TELE MONITOR READS A-PACING RATE 60. IN NO APPARENT DISTRESS. IV ACCESS IN RIGHT WRIST #22 PATENT AND SALINE LOCKED. PATIENT DOESN'T WANT TO BE CONNECTED AT THIS TIME. BED IS LOW AND LOCKED, SIDE RIALS UP X2, CALL LIGHT WITHIN WITHIN REACH. WILL CONTINUE TO MONITOR.
[2020-05-16 00:24] VITALS: BP 122/62
[2020-05-16 04:00] VITALS: BP 140/70
[2020-05-16 04:15] VITALS: BP 140/70
[2020-05-16 06:54] LABS: BASOPHILS # (AUTO) 0.1 /CMM (0.0-0.2); EOSINOPHILS % (AUTO) 2.7 % (0.0-6.0); HEMATOCRIT 29 % (33-45); LYMPHOCYTES # (AUTO) 1.1 /CMM (0.8-4.8); LYMPHOCYTES % (AUTO) 20.1 % (20.0-44.0); MEAN CORPUSCULAR HGB CONC 35 g/dl (31.0-36.0); MEAN CORPUSCULAR VOLUME 93 fL (82-100); MONOCYTES # (AUTO) 0.7 /CMM (0.1-1.30); NEUTROPHILS # (AUTO) 3.5 /CMM (1.8-8.9); NEUTROPHILS % (AUTO) 63.2 % (43.0-81.0); PLATELET COUNT (AUTO) 201 /CMM (150-450); RED BLOOD CELL COUNT(AUTO) 3.15 MIL/uL (4.0-5.2); WHITE BLOOD COUNT (AUTO) 5.5 K/uL (4.3-11.0)
[2020-05-16 07:00] LABS: CALCIUM, SERUM 8.7 mg/dL (8.5-10.1); CREATININE 1.2 mg/dL (0.6-1.3); POTASSIUM 3.4 mmol/L (3.5-5.1)
--- NOTE | 2020-05-16 07:02 | NUR ---
STONE CLEANER CLOSING NOTE PATIENT RESTING IN BED. A/OX3. NO RESP DISTRESS. NO C/O PAIN.TELE MONITOR READS A-PACING RATE 60S. NO DISTRESS. IV ACCESS MAINTAINED IN RIGHT WRIST #22. BED REMAINS LOW AND LOCKED, SIDE RIALS UP X2, CALL LIGHT WITHIN WITHIN REACH. WILL ENDORSE TO ONCOMING SHIFT
[2020-05-16 08:00] VITALS: BP 181/83
[2020-05-16] MEDS: VALSARTAN 80 MG TABLET PO SCH (09:29)
[2020-05-16] MEDS: hydrALAZINE HCL 50 MG TABLET PO SCH (09:29)
[2020-05-16 09:30] VITALS: BP 181/83
[2020-05-16] MEDS: AMIODARONE HCL 200 MG TABLET PO SCH (09:30)
[2020-05-16] MEDS: APIXABAN 2.5 MG TABLET PO SCH (09:30)
[2020-05-16] MEDS: ISOSORBIDE MONONITRATE (30MG) 30 MG TAB.SR.24H PO SCH (09:30)
[2020-05-16] MEDS: CHLORTHALIDONE 25 MG PO SCH (09:31)
[2020-05-16] MEDS: CEFTRIAXONE 1 G in IV D5W 50 ML IV SCH (09:32)
[2020-05-16] MEDS ORDERED: POTASSIUM CHLORIDE 20 MEQ TAB.PRT.SR PO SCH (10:00)
[2020-05-16] MEDS ORDERED: CEPH500C2 PO ×2 (11:27→16:24)
--- NOTE | 2020-05-16 12:04 | NUR ---
RN OPENING NOTE PT IS AWAKE IN BED. A/O X3 AND ABLE TO COMMUNICATE NEEDS TO NURSES. NO COMPLAINT OF PAIN/NAUSEA. CURRENTLY ON RA WITH NO SOB/RESPIRATORY DISTRESS PRESENT. PACEMAKER PRESENT ON UPPER CHEST. AMBULATORY WITH STANDBY ASSIST. R THIGH BRUISE PRESENT. HL PRESENT ON R WRIST 20G. SAFETY MEASURES IN PLACE. SIDE RAILS RAISED. BED LOWERED. CALL LIGHT WITHIN REACH. WILL CONTINUE TO MONITOR.
--- NOTE | 2020-05-16 15:40 | NUR ---
SS Consult: SS consult requested to discuss discharge plans with the patient. SW met with patient. Patient stated she was brought into the hospital by her son and [id number] after feeling that her blood pressure was low. Pt was alert and oriented x3. Pt appeared well-groomed and calm. Pt was forgetful at times, as evidenced by the pt having trouble recalling what year it was. Patient confirmed that she will be returning to prior living arrangements with her son and [id number] at [address] [place] [address]. Patient has adequate social support and is currently receiving Social Security Income ([place] [employer] Representation Document Preparation) and [employer]. Patient is independent in her ADLs. Patient denies any history of mental illness, hallucinations or delusions. Patient denies any thoughts of suicide or homicide. Patient declined any resources at this time. SW spoke to patients [id number], Maru Lynch who stated that she will be able to tack picker the patient at the time of discharge.
--- NOTE | 2020-05-16 15:43 | NUR ---
BARIATRIC PHYSICIAN NOTE PT DISCHARGED HOME VIA PRIVATE CAR ACCOMPANIED BY DAUGHTER. [employer] UTILIZED AND EDUCATION GIVEN. EDUCATION: F/U WITH GEOGRAPHIC INFORMATION SYSTEM SURVEYOR FOR BP MED ADJUSTMENT, HOLD CHLORTHALIDONE, KEFLEX PRESCRIPTION ADDED. PRESCRIPTION GIVEN TO PREFERRED PHARMACY. HL REMOVED. ID BAND REMOVED.
== END 2020-05-16 15:40 | disposition home or self-care (01) | DRG 640 ==
LOC: ER 13:33 → TELE 16:59 → MED 05-16 10:15
PROVIDERS: ADMIT Nurse Practitioner Family; ATTEND Nurse Practitioner Family
DX: E87.1 Hypo-osmolality and hyponatremia (principal); N17.0 Acute kidney failure with tubular necrosis; N39.0 Urinary tract infection, site not specified; E87.2 Acidosis; I95.2 Hypotension due to drugs; I11.0 Hypertensive heart disease with heart failure; I50.9 Heart failure, unspecified; E86.0 Dehydration; B96.4 Proteus (mirabilis) (morganii) as the cause of diseases classified elsewhere; E86.1 Hypovolemia; E87.6 Hypokalemia; F41.9 Anxiety disorder, unspecified; I48.91 Unspecified atrial fibrillation; Z79.899 Other long term (current) drug therapy; Z20.822 Contact with and (suspected) exposure to COVID-19; T50.2X5A Adverse effect of carbonic-anhydrase inhibitors, benzothiadiazides and other diuretics, initial encounter; Z95.0 Presence of cardiac pacemaker; Y92.099 Unspecified place in other non-institutional residence as the place of occurrence of the external cause
CPT/HCPCS: 36415; 71045-TC; 80048-TC; 80061-TC; 80076-TC; 81001; 83605-TC; 83735-TC; 83880; 84100-TC; 84443-TC; 84484-TC; 85025-TC; 85730-TC; 87040-TC; 87081-TC; 87086-TC; 87186-TC; 90732; C9803; G0378; J0696; J7030; J7060; Q2036